=== PATIENT | female | born 1975 | race Asian ===

== ENCOUNTER 2023-05-06 12:57 | Day surgery (SDC) | payer BC ==
[2023-05-06] MEDS ORDERED: Sodium Bicarbonate 2.5 MEQ/5 ML VIAL ONE (13:03)
[2023-05-06] MEDS ORDERED: Lidocaine 1% PF 5 ML VIAL ONE (13:03)
== END 2023-05-06 14:10 | disposition home or self-care (01) ==
LOC: ULT 12:57
PROVIDERS: ATTEND Student in an Organized Health Care Education/Training Program
DX: E04.1 Nontoxic single thyroid nodule (principal)
CPT/HCPCS: 10005; 88173

== ENCOUNTER 2024-01-07 14:08 | Outpatient (CLI) | payer BC | END 2024-01-07 14:09 | disposition home or self-care (01) | LOC: SCSLAB 14:08 | PROVIDERS: ATTEND Family Medicine | DX: Z00.00 Encounter for general adult medical examination without abnormal findings (principal) ==